=== PATIENT | male | born 1995 | race Caucasian/White ===

== ENCOUNTER 2017-08-20 22:29 | Emergency (ER) | payer OTHER ==
[2017-08-20] MEDS ORDERED: IBUPROFEN 200 MG TAB PO ONE (22:34)
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
--- NOTE | 2017-08-20 22:57 | CPEKG ---
Heart Rate: 75 RR Interval: 800 P-R Interval: 188 QRSD Interval: 90 QT Interval: 384 QTC Interval: 429 P [place]: 81 QRS [place]: 73 T Wave [place]: 18 EKG Severity - NORMAL ECG - EKG Impression: SINUS RHYTHM Electronically Signed By: Belkys Carrero 21-Aug-2017 04:42:33
[2017-08-21 00:41] VITALS: BP 136/79
== END 2017-08-21 00:41 | disposition home or self-care (01) ==
DX: F41.9 Anxiety disorder, unspecified (principal)